=== PATIENT | female | born 1955 | race African-American/Black ===

== ENCOUNTER 2017-10-03 17:04 | Emergency (ER) | payer OTHER ==
[~2017-10-03] VITALS: Ht 162.6 cm; Wt 77.6 kg
[2017-10-03 17:10] VITALS: BP 180/74; TEMP 97.2
== END 2017-10-03 20:58 | disposition short-term general hospital (02) ==
LOC: ED 17:04
DX: S43.004A Unspecified dislocation of right shoulder joint, initial encounter (principal); W18.2XXA Fall in (into) shower or empty bathtub, initial encounter
CPT/HCPCS: 96372; 96374; 96375; 99285; J1170; J1885; J2405

== ENCOUNTER 2017-10-03 21:01 | Outpatient (CLI) | payer OTHER | END 2017-10-03 22:29 | disposition short-term general hospital (02) | LOC: AMB 21:01 | DX: S43.004A Unspecified dislocation of right shoulder joint, initial encounter (principal); W18.2XXA Fall in (into) shower or empty bathtub, initial encounter | CPT/HCPCS: A0425; A0429 ==